=== PATIENT | male | born 1945 | race Caucasian/White ===

== ENCOUNTER 2018-02-11 16:53 | Outpatient (CLI) | payer MEDICARE | END 2018-02-11 16:54 | disposition critical access hospital (66) | LOC: EMS 16:53 | PROVIDERS: ATTEND Surgery | DX: S09.90XA Unspecified injury of head, initial encounter (principal); R41.82 Altered mental status, unspecified; W19.XXXA Unspecified fall, initial encounter; Y92.002 Bathroom of unspecified non-institutional (private) residence as the place of occurrence of the external cause | CPT/HCPCS: A0425; A0429 ==

== ENCOUNTER 2018-02-11 17:29 | Emergency (ER) | payer MEDICARE ==
[2018-02-11] MEDS ORDERED: BUFFERED LIDOCAINE 10 ML SYRINGE SUBQ STA ×2 (17:37→17:43)
--- NOTE | 2018-02-11 17:39 | ED Physician Documentation ---
PD HPI Fall - Stated complaint Stated Complaint: GLF - History obtained from History obtained from: Patient, EMS - History of Present Illness Mechanism of injury: Other (He is coming out of the bathroom and either slipped or passed out and hit the back of his head on the ground. There was loss of consciousness and he does not remember the asked. He feels fine now there is no associated chest pain or trouble breathing. He denies a significant headache and his tetanus is up-to-date.) Review of Systems Constitutional: reports: Reviewed and negative Nose: denies: Rhinorrhea / runny nose, Congestion Throat: denies: Dental pain / toothache, Sore throat Cardiac: denies: Chest pain / pressure, Palpitations Respiratory: denies: Dyspnea, Cough PD PAST MEDICAL HISTORY - Past Medical History Cardiovascular: Hypertension, High cholesterol Respiratory: None Endocrine/Autoimmune: None GI: None : Incontinence HEENT: None Psych: None Musculoskeletal: Osteoarthritis Derm: None - Past Surgical History Past Surgical History: Yes General: Appendectomy, Colonoscopy Ortho: Knee replacement, Rotator cuff repair HEENT: Cataracts - Present Medications Home Medications: Ambulatory Orders Medication Instructions Recorded Confirmed Metoprolol Tartrate [Lopressor] 40 mg PO BID 09/20/13 05/10/16 Cholecalciferol (Vitamin D3) 1,000 units PO DAILY 04/12/15 05/10/16 [Vitamin D] Multivitamin [Multivitamins] 1 each PO DAILY 04/12/15 05/10/16 [place]-3/Dha/Epa/Fish Oil [Fish Oil 1 each PO DAILY 04/12/15 05/10/16 [place]-3 Softgel] Simvastatin [Zocor] 40 each PO DAILY 04/12/15 05/10/16 Hydroxychloroquine [Plaquenil] 0 mg DAILY 02/11/18 02/11/18 Prednisone 0 mg DAILY 02/11/18 02/11/18 - Allergies Allergies/Adverse Reactions: Allergies Allergy/AdvReac Type Severity Reaction Status Date / Time No Known Drug Allergies Allergy Verified 02/11/18 17:39 - Social History Does the pt smoke?: No Smoking Status: Former smoker Does the pt drink ETOH?: Yes Does the pt have substance abuse?: No - Immunizations Immunizations are current?: Yes PD ED PE NORMAL - Vitals Vital signs reviewed: Yes - General General: Alert and oriented X 3, No acute distress - HEENT HEENT: PERRL, EOMI, Other (There is an occipital laceration measuring about 3 cm , no TTP) - Neck Neck: Supple, no meningeal sign, No bony TTP - Cardiac Cardiac: RRR, No murmur - Respiratory Respiratory: No respiratory distress, Clear bilaterally - Abdomen Abdomen: Normal bowel sounds, Soft, Non tender - Back Back: No CVA TTP, No spinal TTP - Derm Derm: Normal color, Warm and dry - Extremities Extremities: No edema, No calf tenderness / cord - Neuro Neuro: Alert and oriented X 3, Normal speech Eye Opening: Spontaneous Motor: Obeys Commands Verbal: Oriented GCS Score: 15 - Psych Psych: Normal mood, Normal affect Results - Vitals Vitals: Vital Signs - 24 hr 02/11/18 17:32 Temperature 36.4 C L Heart Rate 55 L Respiratory 18 Rate Blood Pressure 128/68 O2 Saturation 96 Oxygen O2 Source Room air - EKG (time done) 1805 Rate: Rate (enter#) (55) Rhythm: NSR [place]: Normal Intervals: Normal [place] QRS: Normal Ischemia: Normal ST segments Computer interpretation: Agree with computer - Labs Labs: Laboratory Tests 02/11/18 02/11/18 17:42 17:42 WBC 5.7 RBC 5.12 Hgb 15.5 Hct 46.7 MCV 91.4 MCH 30.4 MCHC 33.2 RDW 14.2 Plt Count 221 MPV 8.4 Neut # 3.0 Lymph # 1.9 Ocean # 0.6 Eos # 0.1 Baso # 0.0 Absolute Nucleated RBC 0.01 Nucleated RBC % 0.2 Sodium 136 Potassium 3.8 Chloride 103 Carbon Dioxide 26 Anion Gap 7.0 BUN 9 Creatinine 0.8 Estimated GFR (MDRD) 94 Glucose 109 H Calcium 8.7 Total Bilirubin 0.8 AST 25 ALT 23 Alkaline Phosphatase 52 Total Protein 7.4 Albumin 4.2 Globulin 3.2 Albumin/Globulin Ratio 1.3 Lipase 96 H Ethyl Alcohol 284.8 - Rads (name of study) CT Head and CSpine Radiology: EMP read contemporaneously (No ICH or C spine frx) Procedures - Laceration (location) Scalp Length in cm: 6 Wound type: Curved, Into subcut fat Anesthesia: Lidocaine 1% with epi Wound Preparation: Irrigated copiously NS Skin layer closure: [place] Other: Tetanus UTD Complexity: Simple PD MEDICAL DECISION MAKING - ED course ED course: 72-year-old gentleman with fall, initial history unclear whether was a syncopal episode or fall with loss of consciousness. Further information from the family and blood work suggested it was related to alcohol intoxication and he was counseled not to drink so much. Departure - Departure Disposition: 01 Home, Self Care Clinical Impression: Fall from ground level Alcohol intoxication Qualifiers: Complication of substance-induced condition: uncomplicated Qualified Code(s): F10.920 - Alcohol use, unspecified with intoxication, uncomplicated Scalp laceration Qualifiers: Encounter type: initial encounter Qualified Code(s): S01.01XA - Laceration without foreign body of scalp, initial encounter Condition: Good Record reviewed to determine appropriate education?: Yes Instructions: ED Alcohol Intoxication, ED Head Injury Closed Sleep Mon Comments: Come back for any signs of infection which would include: Redness, swelling, drainage, increased pain, or fevers. Follow-up with Dr. Stacy in 1 week for staple removal and recheck.
[2018-02-11 17:53] LABS: BASOPHILS % (AUTO) 0.9 %; EOSINOPHILS # (AUTO) 0.1 10^3/uL (0.0-0.7); EOSINOPHILS % (AUTO) 2.1 %; HGB - HEMOGLOBIN 15.5 g/dL (14.0-18.0); LYMPHOCYTES # (AUTO) 1.9 10^3/uL (1.5-3.5); LYMPHOCYTES % (AUTO) 33.1 %; MEAN CORPUSCULAR HEMOGLOBIN 30.4 pg (27.0-31.0); MEAN CORPUSCULAR HGB CONC 33.2 g/dL (32.0-36.0); MEAN CORPUSCULAR VOLUME 91.4 fL (80.0-94.0); MEAN PLATELET VOLUME 8.4 fL (7.4-11.4); MONOCYTES # (AUTO) 0.6 10^3/uL (0.0-1.0); NEUTROPHILS % (AUTO) 52.9 %; PLT - PLATELET COUNT 221 10^3/uL (130-450); RED BLOOD COUNT 5.12 10^6/uL (4.70-6.10); RED CELL DISTRIBUTION WIDTH 14.2 % (12.0-15.0); WHITE BLOOD COUNT 5.7 x10^3/uL (4.8-10.8)
[2018-02-11] MEDS ORDERED: LIDOCAINE 1% 2 ML VIAL ONE (17:55)
[2018-02-11 18:06] LABS: ALBUMIN 4.2 g/dL (3.2-5.5); ALBUMIN/GLOBULIN RATIO 1.3 (1.0-2.2); BILIRUBIN,TOTAL 0.8 mg/dL (0.2-1.0); CALCIUM 8.7 mg/dL (8.5-10.3); CREATININE 0.8 mg/dL (0.6-1.2); TOTAL PROTEIN 7.4 g/dL (6.7-8.2)
[2018-02-11] MEDS ORDERED: LIDOCAINE 1%-EPI 1:100000 30 ML MDV ONE (18:18)
--- NOTE | 2018-02-11 18:39 | CT Preliminary Report ---
Exam: CT HEAD W/O IMPRESSION: 1. Generalized age-related cortical atrophic changes without evidence of acute intracranial abnormali ty. 2. Deep scalp laceration with 3 x 2 cm hematoma at the vertex. [facility] SITE ID: [id number]
--- NOTE | 2018-02-11 18:43 | CT Preliminary Report ---
Exam: CT CERVICAL SPINE W/O IMPRESSION: No acute bony abnormality. [facility] SITE ID: [id number]
--- NOTE | 2018-02-11 18:44 | CT Report ---
EXAM: CT HEAD EXAM DATE: 02/11/2018 06:12 PM. CLINICAL HISTORY: Syncopal event. Fall. Posterior head inj. COMPARISON: None. TECHNIQUE: Multiaxial CT images were obtained from the foramen magnum to the vertex. Reformats: Coron al. IV contrast: None. In accordance with CT protocol optimization, one or more of the following dose reduction techniques w ere utilized for this exam: automated exposure control, adjustment of mA and/or KV based on patient s ize, or use of iterative reconstructive technique. FINDINGS: Parenchyma: No intraparenchymal hemorrhage. No evidence of mass, midline shift, or CT findings of acu te infarction. Garcia-white differentiation is distinct. Diffuse chronic microangiopathic white matter changes are evident. Extraaxial Spaces: Normal for age. No subdural or epidural collections identified. Ventricles: The ventricles and cortical sulci are enlarged, consistent with age-related tissue loss. Sinuses and orbits: Imaged paranasal sinuses, orbits, and mastoids show no significant abnormality. Bones: No evidence of fracture or calvarial defect. Other: Deep laceration with 3 x 2 cm hematoma at the vertex. IMPRESSION: 1. Generalized age-related cortical atrophic changes without evidence of acute intracranial abnormali ty. 2. Deep scalp laceration with 3 x 2 cm hematoma at the vertex. [facility] Referring Provider Line: [phone] SITE ID: [id number]
--- NOTE | 2018-02-11 18:57 | CT Report ---
EXAM: CT CERVICAL SPINE WITHOUT CONTRAST DATE: 02/11/2018 06:12 PM. HISTORY: Syncope. Fall with posterior head trauma. Pain. COMPARISONS: None. TECHNIQUE: Thin-section axial images were acquired of the cervical spine without contrast. Post-proce ssing: Coronal and sagittal reformats. Other: None. In accordance with CT protocol optimization, one or more of the following dose reduction techniques w ere utilized for this exam: automated exposure control, adjustment of mA and/or KV based on patient s ize, or use of iterative reconstructive technique. FINDINGS: Alignment: No scoliosis or spondylolisthesis. Bones: No fracture or bone lesion. Interspace Levels/Facets: Multilevel marked degenerative changes. Greatest degree of central spinal canal stenosis is moderate at C5-C6 with flattening of the cervical cord. Multilevel marked bony neural foraminal compromise. Musculature: Normal. No fatty atrophy. Other: The paravertebral and prevertebral soft tissues are unremarkable. The lung apices are clear. IMPRESSION: No acute bony abnormality. [facility] Referring Provider Line: [phone] SITE ID: [id number]
[2018-02-11 19:01] VITALS: BP 126/70
== END 2018-02-11 19:01 | disposition home or self-care (01) ==
LOC: EDUNIT# → ED 17:29
DX: F10.920 Alcohol use, unspecified with intoxication, uncomplicated (principal); S01.01XA Laceration without foreign body of scalp, initial encounter; W18.30XA Fall on same level, unspecified, initial encounter; I10 Essential (primary) hypertension; E78.00 Pure hypercholesterolemia, unspecified; Z96.659 Presence of unspecified artificial knee joint; Z87.891 Personal history of nicotine dependence
CPT/HCPCS: 12002; 36415; 70450; 72125; 80053; 83690; 85025; 93005; 99283; G0480; 80320

== ENCOUNTER 2018-03-23 23:59 | Outpatient (CLI) | payer MEDICARE | END 2018-03-24 | disposition critical access hospital (66) | LOC: EMS 23:59 | PROVIDERS: ATTEND Surgery | DX: S01.01XA Laceration without foreign body of scalp, initial encounter (principal); W19.XXXA Unspecified fall, initial encounter; Y92.002 Bathroom of unspecified non-institutional (private) residence as the place of occurrence of the external cause | CPT/HCPCS: A0425; A0429 ==

== ENCOUNTER 2018-03-24 00:25 | Emergency (ER) | payer MEDICARE ==
--- NOTE | 2018-03-24 01:48 | ED Physician Documentation ---
PD HPI HEAD INJURY - Stated complaint Stated Complaint: GLF, HEAD PAIN - Chief complaint Chief Complaint: Trauma Hd/Nk - History obtained from History obtained from: Patient - History of Present Illness Mechanism of head injury: Fell Where head injury occurred: Home Timing - onset: Today Location of injury: Right Quality of pain: Throbbing Contributing factors: No: Anticoagulated Similar symptoms before: No diagnosis Recently seen: Not recently seen - Additional information Additional information: 72-year-old male who fell while walking to the bathroom this evening. The patient fell injuring his head. No loss of consciousness. The patient has been drinking prior to this. No chest pain or palpitations or syncope. No other reports of injury to the torso or extremities. The patient reports his tetanus being up-to-date. Symptoms are described as moderate. No other associated symptoms Review of Systems Constitutional: denies: Fever, Chills Eyes: denies: Loss of vision, Discharge Ears: denies: Ear pain Nose: denies: Congestion Throat: denies: Sore throat Cardiac: denies: Chest pain / pressure, Palpitations Respiratory: denies: Cough GI: denies: Abdominal Pain Skin: reports: Laceration (s) Musculoskeletal: denies: Joint pain Neurologic: denies: Syncope Immunocompromised: denies: Chemotherapy PD PAST MEDICAL HISTORY - Past Medical History Past Medical History: Yes Cardiovascular: Hypertension, High cholesterol Respiratory: None Endocrine/Autoimmune: None GI: None : Incontinence HEENT: None Psych: None Musculoskeletal: Osteoarthritis Derm: None - Past Surgical History Past Surgical History: Yes General: Appendectomy, Colonoscopy Ortho: Knee replacement, Rotator cuff repair HEENT: Cataracts - Present Medications Home Medications: Ambulatory Orders Medication Instructions Recorded Confirmed Metoprolol Tartrate [Lopressor] 40 mg PO BID 09/20/13 05/10/16 Cholecalciferol (Vitamin D3) 1,000 units PO DAILY 04/12/15 05/10/16 [Vitamin D] Multivitamin [Multivitamins] 1 each PO DAILY 04/12/15 05/10/16 [place]-3/Dha/Epa/Fish Oil [Fish Oil 1 each PO DAILY 04/12/15 05/10/16 [place]-3 Softgel] Simvastatin [Zocor] 40 each PO DAILY 04/12/15 05/10/16 Hydroxychloroquine [Plaquenil] 0 mg DAILY 02/11/18 02/11/18 Prednisone 0 mg DAILY 02/11/18 02/11/18 - Allergies Allergies/Adverse Reactions: Allergies Allergy/AdvReac Type Severity Reaction Status Date / Time No Known Drug Allergies Allergy Verified 03/24/18 00:38 - Social History Does the pt smoke?: No Smoking Status: Never smoker Does the pt drink ETOH?: Yes Does the pt have substance abuse?: No - Immunizations Immunizations are current?: Yes - POLST Patient has POLST: No PD ED PE NORMAL - General General: Alert and oriented X 3, No acute distress - HEENT HEENT: PERRL, EOMI, Ears normal, Pharynx benign, Other (The patient has contusion and a laceration of the right temporal bone). 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 No fracture is identified. Upper mediastinal lymphadenopathy which is unchanged from a prior study) Procedures - Laceration (location) Scalp right Wound type: Linear Wound Preparation: Other (Cleaned moderately) Skin layer closure: [place], Sutures - enter # (3) Other: Patient tolerated well Complexity: Simple PD MEDICAL DECISION MAKING - ED course ED course: There is no acute findings that would necessitate admission to the hospital or acute surgical consultation. The patient's laceration was closed using jerson. I advised follow-up in 7-10 days for removal. I discussed with the patient the incidental finding seen on CT scan, I explained that these have been unchanged since a prior CT scan. I did recommend follow-up with primary care for a dedicated chest CT to further evaluate these enlarged lymph nodes. The patient understands. I discussed warning signs for decompensation and advised returning to the emergency department immediately for worsening or new concerns. - Sepsis Event Vital Signs: Vital Signs - 24 hr 03/24/18 03/24/18 00:35 01:11 Temperature 36.4 C L Heart Rate 66 66 Respiratory 17 14 Rate Blood Pressure 127/82 H 114/66 O2 Saturation 96 98 Oxygen O2 Source Room air Departure - Departure Disposition: 01 Home, Self Care Clinical Impression: Laceration, Lymph node enlargement Injury of head and neck Qualifiers: Encounter type: initial encounter Qualified Code(s): S09.90XA - Unspecified injury of head, initial encounter; S19.9XXA - Unspecified injury of neck, initial encounter; S19.9XXA - Unspecified injury of neck, initial encounter Concussion Qualifiers: Encounter type: initial encounter Loss of consciousness presence/duration: without LOC Qualified Code(s): S06.0X0A - Concussion without loss of consciousness, initial encounter Condition: Good Instructions: ED Head Injury Closed, ED Laceration All Follow-Up: Tod Stacy MD [Primary Care Provider] - Within 1 week (Please have your primary care physician remove your jerson in 7-10 days. Please ask your primary care physician to further workup the enlarged lymph nodes seen on the CT scan. Your primary care physician may want to order a dedicated CT scan of your chest to further evaluate these lymph nodes.) Comments: Please return to the emergency department for worsening symptoms or any concerns
--- NOTE | 2018-03-24 02:12 | CT Report ---
Procedure Date: 03/24/2018 Accession Number: [id number] / [id number] Procedure: CT - Head W/O CPT Code: FULL RESULT: EXAM: CT HEAD EXAM DATE: 03/24/2018 01:57 AM. CLINICAL HISTORY: Head injury. COMPARISON: 02/11/2018. TECHNIQUE: Multiaxial CT images were obtained from the foramen magnum to the vertex. Reformats: Coronal. IV contrast: None. In accordance with CT protocol optimization, one or more of the following dose reduction techniques were utilized for this exam: automated exposure control, adjustment of mA and/or KV based on patient size, or use of iterative reconstructive technique. FINDINGS: Parenchyma: No intraparenchymal hemorrhage. No evidence of mass, midline shift, or CT findings of acute infarction. Garcia-white differentiation is distinct. Diffuse chronic microangiopathic white matter changes are evident. Extraaxial Spaces: Normal for age. No subdural or epidural collections identified. Ventricles: The ventricles and cortical sulci are enlarged, consistent with age-related tissue loss. Sinuses and orbits: Imaged paranasal sinuses, orbits, and mastoids show no significant abnormality. Bones: No evidence of fracture or calvarial defect. Other: Right parietal scalp injury. IMPRESSION: Generalized age-related cortical atrophic changes without evidence of acute intracranial abnormality. [facility]
--- NOTE | 2018-03-24 02:18 | CT Report ---
Procedure Date: 03/24/2018 Accession Number: [id number] / [id number] Procedure: CT - Cervical Spine W/O CPT Code: FULL RESULT: EXAM: CT CERVICAL SPINE WITHOUT CONTRAST DATE: 03/24/2018 01:56 AM. HISTORY: Head injury. COMPARISONS: None. TECHNIQUE: Thin-section axial images were acquired of the cervical spine without contrast. Post-processing: Coronal and sagittal reformats. Other: None. In accordance with CT protocol optimization, one or more of the following dose reduction techniques were utilized for this exam: automated exposure control, adjustment of mA and/or KV based on patient size, or use of iterative reconstructive technique. FINDINGS: Alignment: No scoliosis or spondylolisthesis. Bones: No fracture or bone lesion. Interspace Levels/Facets: Stable multilevel degenerative changes throughout the cervical spine, disk space narrowing is most pronounced at C4-C5, C5-C6 and C6-C7. Central canal narrowing is most pronounced at C5-C6. Musculature: Normal. No fatty atrophy. Other: Multiple prominent lymph nodes in the upper mediastinum, largest is on the right and measures 12 mm. Similar findings present on the prior study. The lung apices are clear. IMPRESSION: Stable degenerative changes in the cervical spine. No fracture is identified. Upper mediastinal lymphadenopathy. [facility]
[2018-03-24 02:49] VITALS: BP 113/66
== END 2018-03-24 02:57 | disposition home or self-care (01) ==
LOC: EDUNIT# → SUPCPDRO 00:25 → ED 00:25
DX: S01.01XA Laceration without foreign body of scalp, initial encounter (principal); S19.9XXA Unspecified injury of neck, initial encounter; S06.0X0A Concussion without loss of consciousness, initial encounter; W18.30XA Fall on same level, unspecified, initial encounter; Y93.01 Activity, walking, marching and hiking; Y92.009 Unspecified place in unspecified non-institutional (private) residence as the place of occurrence of the external cause; R59.9 Enlarged lymph nodes, unspecified; I10 Essential (primary) hypertension; E78.00 Pure hypercholesterolemia, unspecified; Z96.659 Presence of unspecified artificial knee joint
CPT/HCPCS: 12001; 70450; 72125; 99283

== ENCOUNTER 2018-04-08 07:12 | Outpatient (CLI) | payer MEDICARE ==
[2018-04-08] MEDS ORDERED: IOPAMIDOL-300 50 ML VIAL ONE (07:26)
[2018-04-08] MEDS ORDERED: IOPAMIDOL-300 100 ML VIAL ONE (07:27)
[2018-04-08] MEDS ORDERED: IOPAMIDOL-300 50 ML VIAL PO ONE (08:51)
[2018-04-08] MEDS ORDERED: IOPAMIDOL-300 100 ML VIAL IVP ONE (08:51)
--- NOTE | 2018-04-08 09:46 | CT Report ---
Procedure Date: 04/08/2018 Accession Number: [id number] / [id number] Procedure: CT - Abdomen/Pelvis W/ CPT Code: FULL RESULT: EXAM: Chest W/, Abdomen/Pelvis W/ DATE: 04/08/2018 8:48 AM CLINICAL HISTORY: LYMPHADENOPATHY, DIFFUSE COMPARISON: None. TECHNIQUE: Routine helical CT imaging was performed through the chest, abdomen and pelvis. IV contrast: 100 mL of Isovue 300. Reconstructions: Coronal and sagittal. Coronal 20 mm maximum intensity projection images of the chest were also obtained. In accordance with CT protocol optimization, one or more of the following dose reduction techniques were utilized for this exam: automated exposure control, adjustment of mA and/or KV based on patient size, or use of iterative reconstructive technique. FINDINGS: Chest: Lungs/Pleura: 3 mm right upper lobe pulmonary nodule on image 21 axially. 2 mm pulmonary nodule in the left upper lobe on image 35 axially. 2 mm paratracheal nodule in the right lower lobe on image 29. No bronchial thickening, consolidation, or edema. Pulmonary vasculature is normal. No pericardial or pleural effusion. No pneumothorax. Mediastinum: Prominent paraesophageal lymph nodes at the thoracic inlet measure up to 0.8 cm and do not meet size criteria. There is no mediastinal, axillary, supraclavicular or internal mammary lymphadenopathy. The heart and great vessels are unremarkable. Bones: There are no aggressive osseous lesions. ABDOMEN AND PELVIS: The liver, gallbladder, spleen, adrenal glands, kidneys and pancreas are unremarkable with the exception of a right renal cyst. There is no bowel obstruction, free fluid or extraintestinal gas. There is no intraperitoneal or retroperitoneal lymphadenopathy. There is no pelvic mass. IMPRESSION: No thoracic lymphadenopathy or mass. Scattered pulmonary nodules measuring 4 mm or less do not warrant further imaging follow-up in a patient without known malignancy or significant risk factors such as smoking. If the patient has such risk factors, follow-up chest CT at 12 months is recommended per Fleischner Society criteria. Normal CT abdomen pelvis with no lymphadenopathy. [facility]
== END 2018-04-08 07:13 | disposition home or self-care (01) ==
LOC: DI 07:12
PROVIDERS: ATTEND Family Medicine
DX: R91.8 Other nonspecific abnormal finding of lung field (principal)
CPT/HCPCS: 71260; 74177; Q9967

== ENCOUNTER 2018-04-21 13:53 | Emergency (ER) | payer MEDICARE ==
[2018-04-21 14:29] VITALS: BP 127/62
== END 2018-04-21 15:48 | disposition left against medical advice (07) ==
LOC: ED 13:53
DX: Z53.21 Procedure and treatment not carried out due to patient leaving prior to being seen by health care provider (principal)
CPT/HCPCS: 80053; 83690; 85025; 93005

== ENCOUNTER 2019-05-19 08:00 | Outpatient (CLI) | payer MEDICARE | END 2019-05-19 23:59 | disposition home or self-care (01) | LOC: LAB.WCP 08:00 | PROVIDERS: ATTEND Family Medicine | DX: J02.9 Acute pharyngitis, unspecified (principal) ==

== ENCOUNTER 2020-10-02 10:51 | Outpatient (CLI) | payer MEDICARE ==
--- NOTE | 2020-10-02 15:13 | XRAY Report ---
PROCEDURE: Shoulder 3 View RT INDICATIONS: R SHOULDER PX TECHNIQUE: 3 views of the shoulder were acquired. COMPARISON: Rib and PA chest plain film same day reviewed. Also, chest CT 04/08/2018 reviewed. FINDINGS: Bones: No fractures or dislocations. No suspicious bony lesions. Visualized ribs appear intact. Th ere is a curvilinear calcification seen on one of the 3 views at the dorsal aspect of the humeral hea d, which on review of the CT scanning from 04/08/2018 was present in the same area. This therefore lik marino represents sequela of old trauma. Soft tissues: No suspicious soft tissue calcifications. IMPRESSION: Moderately severe AC joint osteoarthritis, moderately severe glenohumeral joint degenera tive change. Chronic dorsal calcific radiodensity adjacent to the posterior border of the right humer al head, present on prior CT scanning from 2018. Old trauma is the likely cause. Reviewed by: Joni Lanza MD on 10/02/2020 3:11 PM PST Approved by: Joni Lanza MD on 10/02/2020 3:11 PM PST Station ID: [id number]
--- NOTE | 2020-10-02 15:17 | XRAY Report ---
PROCEDURE: Ribs w/PA Chest RT INDICATIONS: R SHOULDER PX TECHNIQUE: 4 views of the right ribs were acquired, along with a single view chest. COMPARISON: Prior chest CT 04/08/2018 FINDINGS: Surgical changes and devices: None. Bones and chest wall: No dislocations, but there is a fracture involving the posterior right fourth rib, chronicity uncertain. No suspicious bony lesions. Overlying soft tissues appear unremarkable. Lungs and pleura: No pleural effusions or pneumothorax. Lungs appear clear. Mediastinum: Mediastinal contours appear normal. Heart size is normal. IMPRESSION: The posterior right fourth rib fracture is slightly displaced, not associated with pneumothorax, and is uncertain chronicity but it was not present on prior CT scanning 04/08/2018. No associated pneumoth orax. Reviewed by: Joni Lanza MD on 10/02/2020 3:15 PM PST Approved by: Joni Lanza MD on 10/02/2020 3:15 PM PST Station ID: [id number]
== END 2020-10-02 23:59 | disposition home or self-care (01) ==
LOC: DI.N 10:51
PROVIDERS: ATTEND Physician Assistant Medical
DX: M19.011 Primary osteoarthritis, right shoulder (principal); S22.31XA Fracture of one rib, right side, initial encounter for closed fracture

== ENCOUNTER 2020-10-02 11:52 | Outpatient (CLI) | payer MEDICARE ==
[2020-10-02 18:40] LABS: BASOPHILS # (AUTO) 0.1 10^3/uL (0.0-0.1); BASOPHILS % (AUTO) 0.6 %; EOSINOPHILS # (AUTO) 0.1 10^3/uL (0.0-0.7); EOSINOPHILS % (AUTO) 0.9 %; HGB - HEMOGLOBIN 15.4 g/dL (14.0-18.0); LYMPHOCYTES % (AUTO) 11.9 %; MEAN CORPUSCULAR HEMOGLOBIN 31.9 pg (27.0-31.0); MEAN CORPUSCULAR HGB CONC 33.6 g/dL (32.0-36.0); MEAN CORPUSCULAR VOLUME 94.8 fL (80.0-94.0); MEAN PLATELET VOLUME 10.5 fL (7.4-11.4); MONOCYTES # (AUTO) 0.9 10^3/uL (0.0-1.0); MONOCYTES % (AUTO) 10.6 %; NEUTROPHILS # (AUTO) 6.2 10^3/uL (1.5-6.6); NEUTROPHILS % (AUTO) 75.4 %; PLT - PLATELET COUNT 251 10^3/uL (130-450); RED BLOOD COUNT 4.83 10^6/uL (4.70-6.10); RED CELL DISTRIBUTION WIDTH 12.5 % (12.0-15.0); WHITE BLOOD COUNT 8.2 x10^3/uL (4.8-10.8)
[2020-10-02 18:42] LABS: CALCIUM 9.4 mg/dL (8.5-10.3); CREATININE 0.8 mg/dL (0.6-1.2)
== END 2020-10-02 23:59 | disposition home or self-care (01) ==
LOC: LAB.N 11:52
PROVIDERS: ATTEND Physician Assistant Medical
DX: R55 Syncope and collapse (principal)
CPT/HCPCS: 36415; 80048; 85025

== ENCOUNTER 2021-05-13 10:26 | Outpatient (CLI) | payer MEDICARE | END 2021-05-13 10:27 | disposition short-term general hospital (02) | LOC: EMS 10:26 | DX: R55 Syncope and collapse (principal) | CPT/HCPCS: A0425; A0429 ==

== ENCOUNTER 2021-05-24 11:02 | Outpatient (CLI) | payer MEDICARE ==
[2021-05-24 18:58] LABS: HCT - HEMATOCRIT 45.7 % (42.0-52.0); HGB - HEMOGLOBIN 15.4 g/dL (14.0-18.0); MEAN CORPUSCULAR HEMOGLOBIN 32.6 pg (27.0-31.0); MEAN CORPUSCULAR HGB CONC 33.7 g/dL (32.0-36.0); MEAN CORPUSCULAR VOLUME 96.8 fL (80.0-94.0); PLT - PLATELET COUNT 285 10^3/uL (130-450); RED BLOOD COUNT 4.72 10^6/uL (4.70-6.10); RED CELL DISTRIBUTION WIDTH 43.2 % (12.0-15.0); WHITE BLOOD COUNT 6.1 x10^3/uL (4.8-10.8)
[2021-05-24 18:59] LABS: BASOPHILS # (AUTO) 0.1 10^3/uL (0.0-0.1); BASOPHILS % (AUTO) 0.8 %; EOSINOPHILS # (AUTO) 0.2 10^3/uL (0.0-0.7); EOSINOPHILS % (AUTO) 3.1 %; LYMPHOCYTES # (AUTO) 1.2 10^3/uL (1.5-3.5); LYMPHOCYTES % (AUTO) 18.9 %; MEAN PLATELET VOLUME 10.2 fL (7.4-11.4); MONOCYTES # (AUTO) 0.7 10^3/uL (0.0-1.0); MONOCYTES % (AUTO) 11.1 %; NEUTROPHILS % (AUTO) 65.8 %
[2021-05-24 19:23] LABS: BUN - BLOOD UREA NITROGEN 11 mg/dL (6-20); CALCIUM 9.4 mg/dL (8.5-10.3); CARBON DIOXIDE - CO2 28 mmol/L (21-32); CHLORIDE 97 mmol/L (101-111); CREATININE 0.9 mg/dL (0.6-1.2); GFR - MDRD 82 (>89); GLUCOSE 97 mg/dL (70-100); POTASSIUM 4.3 mmol/L (3.5-5.0); SODIUM 136 mmol/L (135-145)
[2021-05-24 19:24] LABS: ALBUMIN 4.1 g/dL (3.2-5.5); ALBUMIN/GLOBULIN RATIO 1.5 (1.0-2.2); ALKALINE PHOSPHATASE 55 IU/L (42-121); ALT ALANINE AMINOTRANSFERASE 20 IU/L (10-60); AST ASPARTATE AMINOTRANSFERASE 28 IU/L (10-42); BILIRUBIN,TOTAL 1.9 mg/dL (0.2-1.0); CHOL/HDL RATIO 2.6 (<5.0); CHOLESTEROL 197 mg/dL; HDL CHOLESTEROL 76 mg/dL; LDL CHOLESTEROL,CALCULATED 99 mg/dL; LDL/HDL RATIO 1.3 (<3.6); TOTAL PROTEIN 6.9 g/dL (6.7-8.2); TRIGLYCERIDES 110 mg/dL; VLDL CHOLESTEROL 22 mg/dL
== END 2021-05-24 23:59 | disposition home or self-care (01) ==
LOC: LAB.WCP 11:02
PROVIDERS: ATTEND Physician Assistant Medical
DX: E78.5 Hyperlipidemia, unspecified (principal); K21.9 Gastro-esophageal reflux disease without esophagitis
CPT/HCPCS: 36415; 80053; 80061; 83721; 85025

== ENCOUNTER 2021-05-24 20:31 | Outpatient (CLI) | payer MEDICARE | END 2021-05-24 20:32 | disposition EMS.NT | LOC: EMS 20:31 | DX: Z03.89 Encounter for observation for other suspected diseases and conditions ruled out (principal) ==

== ENCOUNTER 2021-05-31 09:48 | Outpatient (CLI) | payer MEDICARE | END 2021-05-31 09:49 | disposition short-term general hospital (02) | LOC: EMS 09:48 | DX: R53.1 Weakness (principal); R82.998 Other abnormal findings in urine | CPT/HCPCS: A0425; A0429 ==